=== PATIENT | male | born 1995 | race Caucasian/White ===

== ENCOUNTER 2024-01-19 20:45 | Emergency (ER) | payer SELFPAY ==
[~2024-01-19] VITALS: Ht 177.8 cm; Wt 77.0 kg
[2024-01-19 20:54] VITALS: BP 140/82; PULSE 108; RESP 16; TEMP 98.6; O2SAT 98
[2024-01-19] MEDS ORDERED: IBUPROFEN 800MG TABLET PO ONE (22:45)
== END 2024-01-20 00:25 | disposition left against medical advice (07) ==
LOC: ER 20:45
DX: M54.6 Pain in thoracic spine (principal); M25.531 Pain in right wrist; M25.532 Pain in left wrist; V49.49XA Driver injured in collision with other motor vehicles in traffic accident, initial encounter; Y93.89 Activity, other specified; Y92.89 Other specified places as the place of occurrence of the external cause; Y99.8 Other external cause status
CPT/HCPCS: 99283